=== PATIENT | female | born 1955 | race Caucasian/White ===

== ENCOUNTER 2024-09-25 10:51 | Emergency (ER) | payer MEDICARE ==
[~2024-09-25] VITALS: Ht 152.4 cm; Wt 52.2 kg
[2024-09-25 11:05] VITALS: BP_SYST 109; PULSE 64; RESP 16; TEMP 97.2; O2SAT 97
[2024-09-25] MEDS ORDERED: AMOX500C2 PO (12:13)
[2024-09-25] MEDS ORDERED: NAPR-688 PO (12:16)
[2024-09-25 12:22] VITALS: BP_SYST 109; PULSE 64; RESP 16; TEMP 97.2; O2SAT 97
== END 2024-09-25 12:22 | disposition home or self-care (01) ==
LOC: SED 10:51
DX: R59.0 Localized enlarged lymph nodes (principal); M54.2 Cervicalgia; Z88.6 Allergy status to analgesic agent
CPT/HCPCS: 99281; 99283